=== PATIENT | female | born 1965 | race Caucasian/White ===

== ENCOUNTER → 2021-03-15 | Outpatient (CLI) | payer BC, OTHER ==
[2015-03-03 05:45] VITALS: BP 91/52
[~2021-03-15] MED LIST: CITA10TA8 PO; DULO60CA7 PO; HYDR-2679 PO; METR500T PO; ONDA4TAB10 SL; TRAM50TA PO; TRAZ-125 PO
--- NOTE | 2021-03-15 16:20 | RAD ---
EXAM: Pelvic sonogram. HISTORY: Pelvic pain and discharge. TECHNIQUE: Transabdominal and transvaginal sonographic imaging of the pelvis was performed. COMPARISON: None. FINDINGS: The uterus measures 6.4 x 4.4 x 3.5 cm. The endometrial stripe measures 3.3 mm in thickness . The right ovary is not seen. The left ovary is normal in size and demonstrate normal blood flow. Th ere is a 9 mm left adnexal cyst which is likely paraovarian in etiology. There is echogenicity within the lower uterine segment likely due to the sequela of prior reported endometrial ablation. IMPRESSION: 1. 9 mm left paraovarian follicle/follicular cyst. 2. Thin endometrium and increased echogenicity within the lower uterine segment likely due to prior e ndometrial ablation. 3. Obscured right ovary. Electronically signed by: Alexandra Tolentino MD (03/15/2021 4:18 PM) [id number]
== END ==
LOC: US 15:33
PROVIDERS: ATTEND Specialist
DX: N83.02 Follicular cyst of left ovary (principal); N83.8 Other noninflammatory disorders of ovary, fallopian tube and broad ligament
CPT/HCPCS: 76830; 76856